=== PATIENT | female | born 1985 | race American Indian/Alaskan Native ===

== ENCOUNTER 2016-11-03 14:03 | Emergency (ER) | payer OTHER, MEDICAID ==
[2016-11-03] MEDS ORDERED: NORCO 5/325 PO ONE (23:23)
[2016-11-03] MEDS ORDERED: FLEXERIL PO ONE (23:23)
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
[2016-11-04 01:07] VITALS: BP 96/56
== END 2016-11-04 01:06 | disposition home or self-care (01) ==
LOC: ED 14:03
DX: Z04.1 Encounter for examination and observation following transport accident (principal)
CPT/HCPCS: 72072; 81025; 99284